=== PATIENT | male | born 1955 | race Asian ===

== ENCOUNTER 2022-01-05 19:22 | Emergency (ER) | payer OTHER ==
[~2022-01-05] VITALS: Ht 157.5 cm; Wt 60.8 kg
[2022-01-05 21:50] VITALS: BP 181/92
--- NOTE | 2022-01-05 21:54 | NUR ---
PT TO LOBBY
[2022-01-05 22:25] LABS: APPEARANCE,URINE CLEAR (CLEAR); BILIRUBIN,URINE NEGATIVE (NEGATIVE); BLOOD, URINE NEGATIVE (NEGATIVE); COLOR,URINE YELLOW (YELLOW); LEUKOCYTE ESTERASE ,URINE NEGATIVE (NEGATIVE); NITRITE, URINE NEGATIVE (NEGATIVE); UGLUCOSE 1+ (NEGATIVE)
--- NOTE | 2022-01-05 22:30 | NUR ---
PT LWBS PER ER ADMITTING @ [id number]
[2022-01-06] MEDS ORDERED: CIPR500T4 PO (12:15)
[2022-01-06] MEDS ORDERED: METH-1681 PO (12:15)
[2022-01-06] MEDS ORDERED: IBUP-2213 PO (12:15)
== END 2022-01-05 22:30 | disposition left against medical advice (07) ==
LOC: MED 19:22
DX: M54.2 Cervicalgia (principal); Z53.21 Procedure and treatment not carried out due to patient leaving prior to being seen by health care provider
CPT/HCPCS: 81003

== ENCOUNTER 2022-01-06 09:31 | Emergency (ER) | payer OTHER ==
[~2022-01-06] VITALS: Ht 157.5 cm; Wt 61.2 kg
--- NOTE | 2022-01-06 09:41 | NUR ---
Patient ambulated with steady gait to bed 2.
[2022-01-06 09:42] VITALS: BP 157/82
[2022-01-06] MEDS ORDERED: ONDANSETRON 4 MG/2 ML VIAL IVP ONE (10:20)
[2022-01-06] MEDS ORDERED: NACL 0.9% 1,000 ML IV ONE (10:20)
[2022-01-06] MEDS ORDERED: KETOROLAC 30 MG/ML VIAL IVP ONE (10:20)
--- NOTE | 2022-01-06 10:47 | NUR ---
PT TAKEN TO CT
[2022-01-06 11:06] LABS: APPEARANCE,URINE CLEAR (CLEAR); BILIRUBIN,URINE NEGATIVE (NEGATIVE); BLOOD, URINE NEGATIVE (NEGATIVE); COLOR,URINE YELLOW (YELLOW); LEUKOCYTE ESTERASE ,URINE NEGATIVE (NEGATIVE); NITRITE, URINE NEGATIVE (NEGATIVE); UGLUCOSE NEGATIVE (NEGATIVE)
[2022-01-06 11:17] LABS: ALBUMIN 3.7 g/dL (3.4-5.0); ANION GAP 14.1 (8-16); CARBON DIOXIDE 28.1 mmol/L (21-32); CREATININE 0.8 mg/dL (0.6-1.3); POTASSIUM 4.2 mmol/L (3.5-5.1); TOTAL BILIRUBIN 0.3 mg/dL (0.0-1.0)
[2022-01-06 11:28] LABS: BASOPHILS % (AUTO) 0.4 % (0.0-2.0); EOSINOPHILS # (AUTO) 0.1 K/uL (0-0.4); HEMATOCRIT 42.1 % (36-52); HEMOGLOBIN 14.7 g/dL (12.0-18.0); LYMPHOCYTES # (AUTO) 1.7 K/uL (2.0-11.5); LYMPHOCYTES % (AUTO) 26.7 % (20.5-51.1); MEAN CORPUSCULAR HEMOGLOBIN 30 pg (27-31); MEAN CORPUSCULAR HGB CONC 35 g/dL (33-37); MEAN CORPUSCULAR VOLUME 85.3 fL (80-94); MONOCYTES # (AUTO) 0.6 K/uL (0.8-1.0); MONOCYTES % (AUTO) 8.8 % (1.7-9.3); NEUTROPHILS % (AUTO) 63.1 % (42.2-75.2); PLATELET COUNT (AUTO) 235 K/uL (140-450); RED BLOOD CELL COUNT(AUTO) 4.94 MIL/uL (4.20-6.10); RED CELL DISTRIBUTION WIDTH 13.6 % (11.6-13.7); WHITE BLOOD COUNT (AUTO) 6.3 K/uL (4.8-10.8)
--- NOTE | 2022-01-06 11:30 | NUR ---
PT C/O LEFT SIDED FLANK PAIN X1 WEEK. PENDING DISPO. NAD.
[2022-01-06] MEDS ORDERED: IBUP-2213 PO (12:15)
[2022-01-06] MEDS ORDERED: METH-1681 PO (12:15)
[2022-01-06] MEDS ORDERED: CIPR500T4 PO (12:15)
[2022-01-06] MEDS ORDERED: cefTRIAXone 1,000 MG VIAL ONE (12:36)
[2022-01-06 13:04] VITALS: BP 128/70
--- NOTE | 2022-01-06 13:05 | NUR ---
Patient discharged with v/s stable. Written and verbal after care instructions given and explained. Patient alert, oriented and verbalized understanding of instructions. Ambulatory with steady gait. All questions addressed prior to discharge. ID band removed. Patient advised to follow up with PMD. Rx of ROBAXIN, MOTRIN, CIPRO given. Patient educated on indication of medication including possible reaction and side effects. Opportunity to ask questions provided and answered.
== END 2022-01-06 13:05 | disposition home or self-care (01) ==
LOC: MED 09:31
DX: N12 Tubulo-interstitial nephritis, not specified as acute or chronic (principal); E11.9 Type 2 diabetes mellitus without complications; I10 Essential (primary) hypertension; Z79.899 Other long term (current) drug therapy; Z79.2 Long term (current) use of antibiotics; Z79.1 Long term (current) use of non-steroidal anti-inflammatories (NSAID)
CPT/HCPCS: 36415; 74176; 80053; 81003; 82948; 85025; 87086; 96361; 96365; 96375; 99284; J0696; J1885; J2405; J7030